=== PATIENT | female | born 1995 ===

== ENCOUNTER 2021-04-19 17:27 | Emergency (ER) | payer BC, OTHER ==
[~2021-04-19] VITALS: Ht 167.6 cm; Wt 65.8 kg
[2021-04-19 17:29] VITALS: BP 137/87
== END 2021-04-19 22:00 | disposition left against medical advice (07) ==
LOC: ER 17:27
DX: T78.40XA Allergy, unspecified, initial encounter (principal); Z53.21 Procedure and treatment not carried out due to patient leaving prior to being seen by health care provider; X58.XXXA Exposure to other specified factors, initial encounter